=== PATIENT | female | born 1965 | race Two or more races ===

== ENCOUNTER 2017-08-10 23:04 | Emergency (ER) | payer SELFPAY | END 2017-08-11 00:30 | disposition left against medical advice (07) | LOC: ER 23:04 | DX: R06.02 Shortness of breath (principal); Z53.21 Procedure and treatment not carried out due to patient leaving prior to being seen by health care provider ==

== ENCOUNTER 2020-11-16 18:16 | Emergency (ER) | payer SELFPAY ==
[~2020-11-16] VITALS: Ht 162.6 cm; Wt 100.0 kg
[2020-11-16 23:20] LABS: BASOPHILS % 0.3 % (0.0-2.0); EOSINOPHILS % 1.4 % (0.0-5.0); HEMATOCRIT. 42.6 % (36.0-48.0); HEMOGLOBIN. 14.3 g/dL (12.0-16.0); LYMPHOCYTES % 33.2 % (20.0-50.0); MEAN CORPUSCULAR HEMOGLOBIN 27.1 pg (28.0-32.0); MEAN CORPUSCULAR VOLUME 80.6 fL (81.0-99.0); MEAN PLATELET VOLUME 9.5 fl (7.4-10.4); MONOCYTES % 9.4 % (2.0-8.0); NEUTROPHILS % 55.7 % (40.0-76.0); RED BLOOD CELL COUNT 5.28 mill/uL (4.2-5.4); RED CELL DISTRIBUTION WIDTH 15.5 % (11.6-14.6)
[2020-11-16 23:26] LABS: PLATELET 45 x1000/uL (130-400)
[2020-11-16 23:29] LABS: CHLORIDE 107 mEq/L (98-107)
[2020-11-17 00:33] VITALS: BP 143/79
== END 2020-11-17 00:44 | disposition home or self-care (01) ==
LOC: ER 18:16
DX: U07.1 COVID-19 (principal); J12.82 Pneumonia due to coronavirus disease 2019; D69.6 Thrombocytopenia, unspecified; E11.9 Type 2 diabetes mellitus without complications; E78.00 Pure hypercholesterolemia, unspecified; I10 Essential (primary) hypertension
CPT/HCPCS: 36415; 71045; 80048; 85025; 99284

== ENCOUNTER 2020-11-21 16:21 | Emergency (ER) | payer SELFPAY ==
[~2020-11-21] VITALS: Ht 162.6 cm; Wt 95.0 kg
[2020-11-21 16:30] VITALS: BP 147/92
== END 2020-11-21 18:24 | disposition left against medical advice (07) ==
LOC: ER 16:21
DX: Z53.21 Procedure and treatment not carried out due to patient leaving prior to being seen by health care provider (principal)